=== PATIENT | male | born 1950 | race Caucasian/White ===

== ENCOUNTER 2020-11-17 16:27 | Inpatient (IN) | payer MEDICARE, OTHER ==
[~2020-11-17] VITALS: Ht 177.8 cm; Wt 66.1 kg
[2020-11-17] MEDS ORDERED: CLINDAMYCIN 900MG IV 50 ML IV ONE (17:15)
[2020-11-17] MEDS ORDERED: PIPERACILLIN-TAZOB 3.375GM 100 ML IV ONE (17:15)
[2020-11-17] MEDS ORDERED: SODIUM CHLORIDE 0.9% 500 ML IV ONE ×2 (17:15→20:15)
[2020-11-17] MEDS ORDERED: SULF400T11 PO (18:13)
[2020-11-17] MEDS ORDERED: PANT40TA2 PO (18:13)
[2020-11-17] MEDS ORDERED: FERR1TAB36 PO (18:13)
[2020-11-17] MEDS ORDERED: APIX5TAB PO (18:13)
[2020-11-17] MEDS ORDERED: PRED10TA PO (18:13)
[2020-11-17] MEDS ORDERED: EVER1TAB PO (18:13)
[2020-11-17] MEDS ORDERED: ONDA-144 PO (18:13)
[2020-11-17] MEDS ORDERED: MULT-1018 PO (18:14)
[2020-11-17] MEDS ORDERED: GABA100C9 PO (18:14)
[2020-11-17] MEDS ORDERED: ATOR20TA PO (18:14)
[2020-11-17 18:17] LABS: Urine Bacteria NONE SEEN /hpf (None Seen); Urine Blood 2+ /uL (Negative); Urine WBC 4 /hpf (0 - 3)
[2020-11-17 18:24] LABS: Hemoglobin 7.1 g/dL (13.5-17.5); White Blood Cell 6.7 10^3/uL (4.4-10.8)
[2020-11-17 18:26] LABS: Hematocrit 22.3 % (41.0-53.0); Mean Corpuscular Hemoglobin 26.3 pg (28.0-32.0); Mean Corpuscular Volume 82.3 fL (80.0-100.0); Platelet Count (auto) 249 10^3/uL (140-450); Red Blood Cells 2.71 10^6/uL (4.5-5.90)
[2020-11-17 18:29] LABS: Red Cell Distribution Width 23.2 % (11.8-14.3)
[2020-11-17 18:33] LABS: Basophils % (manual) 0 (0.0-2.0); Blast Cells 0; Metamyelocytes % 0; Myelocytes % 0; Promyelocytes % 0; Reactive Lymphocytes 0
[2020-11-17 18:41] LABS: INR 1.05 (0.9-1.15); Partial Thromboplastin Time 21.9 sec (23.0-31.2)
[2020-11-17 18:45] LABS: Albumin 2.8 g/dL (3.4-5.0); BUN/Creatinine Ratio 14.2; Magnesium 2.1 mg/dL (1.6-2.6); Potassium 4.4 mmol/L (3.5-5.1)
[2020-11-17 18:50] LABS: Bilirubin, Total 0.3 mg/dL (0.2-1.0); Total Protein 6.7 g/dL (6.4-8.2)
[2020-11-17 19:12] LABS: Band Neutrophils % (manual) 9; Eosinophils % (manual) 1 (0-7); Lymphocytes % (manual) 8 (10.0-50.0); Monocytes % (manual) 12 (0-12)
[2020-11-17] MEDS ORDERED: dilTIAZem 25 MG/5 ML VIAL IV ONE ×2 (19:15→20:15)
[2020-11-17 19:23] LABS: CRP High Sensitivity 4.52 mg/dL (< 0.3)
[2020-11-17] MEDS ORDERED: ACETAMINOPHEN 325 MG TAB PO PRN (22:30)
[2020-11-17] MEDS ORDERED: ONDANSETRON HCL 4 MG/2 ML VIAL IV PRN (22:30)
[2020-11-17] MEDS ORDERED: NITROGLYCERIN 0.4 MG SL TAB SL PRN (22:30)
[2020-11-17] MEDS ORDERED: MORPHINE SULF INJ 2 MG/ML SYRINGE 1ML IV PRN (22:30)
[2020-11-17] MEDS ORDERED: DOCUSATE SOD 100 MG CAP PO PRN (22:30)
[2020-11-18] VITALS (9 sets, daily range): BP systolic 114–154; BP diastolic 59–80
[2020-11-18] MEDS: HYDROcodone-ACET 5/325MG TAB PO PRN ×4 (04:49→22:46)
[2020-11-18] MEDS: dilTIAZem HCL 60 MG TAB PO SCH ×3 (05:13→21:09)
[2020-11-18] MEDS: SODIUM CHLOR 0.9% PF (SALINE LOCK) 10ML VIAL/SYR IV SCH ×3 (05:18→21:08)
[2020-11-18] MEDS ORDERED: EPOETIN ALFA-EPBX 10,000 UNIT/1ML VIAL SC ONE (08:45)
[2020-11-18] MEDS: TACROLIMUS 0.5 MG CAP PO SCH ×3 (10:00→21:09)
[2020-11-18] MEDS ORDERED: HEPARIN SODIUM (PORCINE) 5000 UNITS/ML 1ML VIAL SC SCH (10:00)
[2020-11-18 10:27] LABS: Basophils # (auto) 0.1 10 ^3/uL (0-0.2); Eosinophils # (auto) 0 10 ^3/uL (0-0.8); Monocytes # (auto) 0.9 10 ^3/uL (0-1.3); Neutrophils % (auto) 79.9 % (37.0-80.0); Nucleated Red Blood Cells % 0.1 %; White Blood Cell 6.7 10^3/uL (4.4-10.8)
[2020-11-18 10:29] LABS: Eosinophils % (auto) 0.5 % (0.0-7.0); Hematocrit 19.7 % (41.0-53.0); Lymphocytes # (auto) 0.4 10 ^3/uL (0.4-5.4); Lymphocytes % (auto) 5.3 % (10.0-50.0); Mean Corpuscular Hemoglobin 26.3 pg (28.0-32.0); Mean Corpuscular Hgb Conc. 32.9 g/dL (32.0-36.0); Mean Corpuscular Volume 79.8 fL (80.0-100.0); Monocytes % (auto) 13.3 % (0.0-12.0); Neutrophils # (auto) 5.3 10 ^3/uL (1.6-8.6); Platelet Count (auto) 235 10^3/uL (140-450); Red Blood Cells 2.47 10^6/uL (4.5-5.90)
[2020-11-18 10:30] LABS: Red Cell Distribution Width 23.3 % (11.8-14.3)
[2020-11-18 10:32] LABS: Hemoglobin 6.5 g/dL (13.5-17.5)
[2020-11-18 10:39] LABS: Albumin 2.2 g/dL (3.4-5.0); Calcium 8.1 mg/dL (8.5-10.1); Potassium 4.4 mmol/L (3.5-5.1)
[2020-11-18 10:45] LABS: BUN/Creatinine Ratio 15.5; Bilirubin, Total 0.3 mg/dL (0.2-1.0); Total Protein 5.5 g/dL (6.4-8.2)
[2020-11-18] MEDS: ZINC SULFATE 220mg CAP or TAB PO SCH (11:43)
[2020-11-18] MEDS: predniSONE 5 MG TAB PO SCH (11:44)
[2020-11-18] MEDS: MULTIPLE VITAMIN TAB PO SCH (11:45)
[2020-11-18] MEDS: AZITHROMYCIN 500MG/ 250ML 250 ML IV SCH (11:45)
[2020-11-18] MEDS: FAMOTIDINE (10MG/ML) 2ML VL IV SCH ×2 (11:45→21:07)
[2020-11-18] MEDS: ASCORBIC ACID 500 MG TAB PO SCH ×2 (11:46→21:09)
[2020-11-18] MEDS: METOPROLOL TARTRATE 50 MG TAB PO SCH ×2 (11:46→22:45)
[2020-11-18] MEDS: HEPARIN SODIUM (PORCINE) 5000 UNITS/ML 1ML VIAL SC SCH (21:10)
[2020-11-19 04:00] VITALS: BP 151/63
[2020-11-19] MEDS: HYDROcodone-ACET 5/325MG TAB PO PRN ×3 (04:37→14:59)
[2020-11-19 05:25] LABS: Basophils # (auto) 0 10 ^3/uL (0-0.2); Basophils % (auto) 0.5 % (0.0-2.0); Eosinophils # (auto) 0 10 ^3/uL (0-0.8); Eosinophils % (auto) 0.5 % (0.0-7.0); Hematocrit 22.7 % (41.0-53.0); Hemoglobin 7.4 g/dL (13.5-17.5); Lymphocytes # (auto) 0.5 10 ^3/uL (0.4-5.4); Lymphocytes % (auto) 8.6 % (10.0-50.0); Mean Corpuscular Hemoglobin 27.1 pg (28.0-32.0); Mean Corpuscular Hgb Conc. 32.7 g/dL (32.0-36.0); Monocytes % (auto) 15.8 % (0.0-12.0); Neutrophils # (auto) 4.7 10 ^3/uL (1.6-8.6); Neutrophils % (auto) 74.6 % (37.0-80.0); Platelet Count (auto) 207 10^3/uL (140-450); Red Blood Cells 2.74 10^6/uL (4.5-5.90); White Blood Cell 6.2 10^3/uL (4.4-10.8)
[2020-11-19 05:44] LABS: Calcium 8.2 mg/dL (8.5-10.1); Potassium 4.5 mmol/L (3.5-5.1)
[2020-11-19 05:46] LABS: BUN/Creatinine Ratio 17.8
[2020-11-19] MEDS: SODIUM CHLOR 0.9% PF (SALINE LOCK) 10ML VIAL/SYR IV SCH ×2 (06:05→17:15)
[2020-11-19] MEDS: dilTIAZem HCL 60 MG TAB PO SCH ×2 (06:09→14:00)
[2020-11-19] MEDS: HEPARIN SODIUM (PORCINE) 5000 UNITS/ML 1ML VIAL SC SCH ×2 (06:13→14:00)
[2020-11-19 09:00] VITALS: BP 155/71
[2020-11-19] MEDS: predniSONE 5 MG TAB PO SCH (09:26)
[2020-11-19] MEDS: ASCORBIC ACID 500 MG TAB PO SCH (09:27)
[2020-11-19] MEDS: ZINC SULFATE 220mg CAP or TAB PO SCH (09:28)
[2020-11-19] MEDS: MULTIPLE VITAMIN TAB PO SCH (09:28)
[2020-11-19] MEDS: FAMOTIDINE (10MG/ML) 2ML VL IV SCH (09:49)
[2020-11-19] MEDS: AZITHROMYCIN 500MG/ 250ML 250 ML IV SCH (09:49)
[2020-11-19] MEDS: METOPROLOL TARTRATE 50 MG TAB PO SCH (10:32)
[2020-11-19] MEDS: TACROLIMUS 0.5 MG CAP PO SCH (11:44)
[2020-11-19 12:45] VITALS: BP 167/74
[2020-11-19 16:29] VITALS: BP 155/71
[2020-11-19 18:00] VITALS: BP 137/54
== END 2020-11-19 18:05 | disposition home health service (06) | DRG 189 ==
LOC: ER 16:27 → EDBD 16:27 → TELE-CENTR 22:17
PROVIDERS: ADMIT Nurse Practitioner Family; ATTEND Internal Medicine
PROC: 05H933Z Insertion of Infusion Device into Right Brachial Vein, Percutaneous Approach (ICD-10-PCS; principal; 2020-11-18)
PROC: 30230N1 Transfusion of Nonautologous Red Blood Cells into Peripheral Vein, Open Approach (ICD-10-PCS; 2020-11-18)
PROC: B54MZZA Ultrasonography of Right Upper Extremity Veins, Guidance (ICD-10-PCS; 2020-11-18)
DX: J96.01 Acute respiratory failure with hypoxia (principal); N17.0 Acute kidney failure with tubular necrosis; J18.9 Pneumonia, unspecified organism; L03.116 Cellulitis of left lower limb; C34.32 Malignant neoplasm of lower lobe, left bronchus or lung; Z94.2 Lung transplant status; J44.0 Chronic obstructive pulmonary disease with (acute) lower respiratory infection; R64 Cachexia; N18.4 Chronic kidney disease, stage 4 (severe); L03.115 Cellulitis of right lower limb; I48.91 Unspecified atrial fibrillation; Z20.822 Contact with and (suspected) exposure to COVID-19; E78.5 Hyperlipidemia, unspecified; I12.9 Hypertensive chronic kidney disease with stage 1 through stage 4 chronic kidney disease, or unspecified chronic kidney disease; D63.1 Anemia in chronic kidney disease; Z79.01 Long term (current) use of anticoagulants; Z79.899 Other long term (current) drug therapy; Z85.118 Personal history of other malignant neoplasm of bronchus and lung; Z92.21 Personal history of antineoplastic chemotherapy; Z68.20 Body mass index [BMI] 20.0-20.9, adult
CPT/HCPCS: 36415; 36600; 51702; 71045; 80048; 80053; 80197; 81001; 82010; 82728; 82805; 83605; 83615; 83735; 83880; 84484; 85007; 85025; 85027; 85379; 85610; 85730; 86141; 86850; 86900; 86901; 86920; 87040; 87086; 87426; 93005; 96365; 96366; 96367; 96375; 96376; 99291; G0378; J2543; J3490

== ENCOUNTER 2021-03-04 12:31 | Emergency (ER) | payer OTHER ==
[~2021-03-04] VITALS: Ht 177.8 cm; Wt 63.5 kg
[~2021-03-04 12:31] MED LIST: APIX5TAB PO; ATOR20TA PO; EVER1TAB PO; FERR1TAB36 PO; GABA100C9 PO; MULT-1018 PO; ONDA-144 PO; PANT40TA2 PO; PRED10TA PO; SULF400T11 PO
[2021-03-04 13:20] LABS: Basophils # (auto) 0 10 ^3/uL (0-0.2); Eosinophils # (auto) 0 10 ^3/uL (0-0.8); Lymphocytes # (auto) 0.3 10 ^3/uL (0.4-5.4); Neutrophils % (auto) 95.5 % (37.0-80.0)
[2021-03-04 13:21] LABS: Basophils % (auto) 0.3 % (0.0-2.0); Eosinophils % (auto) 0.3 % (0.0-7.0); Hematocrit 21.7 % (41.0-53.0); Mean Corpuscular Hemoglobin 25.3 pg (28.0-32.0); Mean Corpuscular Hgb Conc. 29.4 g/dL (32.0-36.0); Mean Corpuscular Volume 86.2 fL (80.0-100.0); Monocytes # (auto) 0.2 10 ^3/uL (0-1.3); Monocytes % (auto) 1.9 % (0.0-12.0); Neutrophils # (auto) 11.8 10 ^3/uL (1.6-8.6); Red Blood Cells 2.51 10^6/uL (4.5-5.90); Red Cell Distribution Width 18.5 % (11.8-14.3); White Blood Cell 12.4 10^3/uL (4.4-10.8)
[2021-03-04 13:25] LABS: Hemoglobin 6.4 g/dL (13.5-17.5)
[2021-03-04 13:33] LABS: Alanine Aminotransferase 12 U/L (16-61); Anion Gap 7 (5-15); Aspartate Aminotransferase 11 U/L (15-37); Blood Urea Nitrogen 37 mg/dL (7-18); Calcium 10.5 mg/dL (8.5-10.1); Carbon Dioxide 21 mmol/L (21-32); Chloride 110 mmol/L (98-107); Glucose 105 mg/dL (74-106); Potassium 4.5 mmol/L (3.5-5.1); Sodium 138 mmol/L (136-145)
[2021-03-04 13:38] LABS: Alkaline Phosphatase 130 U/L (45-117); BUN/Creatinine Ratio 13.9; Bilirubin, Total 0.2 mg/dL (0.2-1.0); GFR African American 31 mL/min; GFR Non-African American 25 mL/min; Total Protein 6.8 g/dL (6.4-8.2)
[2021-03-04 17:58] LABS: Urine Bacteria FEW /hpf (None Seen); Urine Blood 1+ /uL (Negative); Urine Hyaline Cast FEW /lpf (0 - 2); Urine Specific Gravity 1.015 (1.001-1.035); Urine WBC 2 /hpf (0 - 3)
[2021-03-04 18:38] VITALS: BP 132/72
[2021-03-04 19:04] VITALS: BP 145/81
[2021-03-04 19:30] VITALS: BP 139/64
[2021-03-04] MEDS ORDERED: levoFLOXacin 500MG 100 ML IV ONE (20:00)
[2021-03-04] MEDS ORDERED: SODIUM CHLORIDE 0.9% 1,000 ML IV ONE (20:00)
[2021-03-04] MEDS ORDERED: metroNIDAZOLE 500MG/100ML 100 ML IV ONE (20:00)
[2021-03-04] MEDS ORDERED: ONDANSETRON HCL 4 MG/2 ML VIAL IV ONE (21:00)
[2021-03-04] MEDS ORDERED: MORPHINE SULFATE 4 MG/ML SYR/VIAL IV ONE (21:00)
[2021-03-04 21:30] VITALS: BP 141/70
[2021-03-05] MEDS ORDERED: HYDROmorphone HCL 2 MG/ML VL IV ONE (01:45)
[2021-03-05 06:10] LABS: Basophils # (auto) 0.1 10 ^3/uL (0-0.2); Eosinophils # (auto) 0.1 10 ^3/uL (0-0.8)
[2021-03-05 06:13] LABS: Basophils % (auto) 0.8 % (0.0-2.0); Eosinophils % (auto) 1.5 % (0.0-7.0); Lymphocytes # (auto) 0.8 10 ^3/uL (0.4-5.4); Lymphocytes % (auto) 8.5 % (10.0-50.0); Mean Corpuscular Hemoglobin 28.1 pg (28.0-32.0); Mean Corpuscular Volume 85.1 fL (80.0-100.0); Monocytes # (auto) 0.9 10 ^3/uL (0-1.3); Monocytes % (auto) 9.3 % (0.0-12.0); Neutrophils # (auto) 7.8 10 ^3/uL (1.6-8.6); Neutrophils % (auto) 79.9 % (37.0-80.0); Red Blood Cells 2.47 10^6/uL (4.5-5.90); Red Cell Distribution Width 17.1 % (11.8-14.3); White Blood Cell 9.8 10^3/uL (4.4-10.8)
[2021-03-05 06:23] LABS: Hemoglobin 6.9 g/dL (13.5-17.5)
[2021-03-05 08:28] VITALS: BP 137/70
[2021-03-05 08:43] VITALS: BP 130/72
[2021-03-05] MEDS ORDERED: ALBUTEROL SULF 2.5 MG/0.5ML(0.5%) NEB SOLN NEB ONE (09:00)
[2021-03-05 10:04] VITALS: BP 150/84
== END 2021-03-05 10:37 | disposition short-term general hospital (02) ==
LOC: EDBD 12:31 → ER 12:31 → EDUNIT# 12:31 → ER 03-05 10:21
DX: S32.018A Other fracture of first lumbar vertebra, initial encounter for closed fracture (principal); S32.038A Other fracture of third lumbar vertebra, initial encounter for closed fracture; C34.90 Malignant neoplasm of unspecified part of unspecified bronchus or lung; R53.1 Weakness; D64.9 Anemia, unspecified; J44.9 Chronic obstructive pulmonary disease, unspecified; I10 Essential (primary) hypertension; E78.5 Hyperlipidemia, unspecified; Z87.891 Personal history of nicotine dependence; Z79.899 Other long term (current) drug therapy; Z20.822 Contact with and (suspected) exposure to COVID-19; W18.39XA Other fall on same level, initial encounter; Y93.89 Activity, other specified; Y92.89 Other specified places as the place of occurrence of the external cause; Y99.8 Other external cause status
CPT/HCPCS: 36415; 36430; 72131; 80053; 81001; 84484; 85025; 86850; 86900; 86901; 86920; 87040; 87426; 93005; 94640; 96365; 96367; 96375; 99285; J1170; J1956; J2270; J2405; J3490; J7030; P9016